=== PATIENT | female | born 1995 | race Caucasian/White ===

== ENCOUNTER 2023-07-29 09:54 | Emergency (ER) | payer MEDICAID ==
[~2023-07-29] VITALS: Ht 170.2 cm; Wt 74.5 kg
[~2023-07-29 09:54] MED LIST: NITR-60 PO; PREN1CAP12 PO
[2023-07-29 09:57] VITALS: BP 139/78; PULSE 81; RESP 14; TEMP 98.4; O2SAT 96
== END 2023-07-29 12:42 | disposition left against medical advice (07) ==
LOC: ER 09:54
DX: R21 Rash and other nonspecific skin eruption (principal); R07.89 Other chest pain; Z22.322 Carrier or suspected carrier of Methicillin resistant Staphylococcus aureus; Z53.21 Procedure and treatment not carried out due to patient leaving prior to being seen by health care provider
CPT/HCPCS: 99281